=== PATIENT | female | born 1965 | race Caucasian/White ===

== ENCOUNTER → 2016-08-21 | Outpatient (CLI) | payer BC ==
[~2016-08-21] MED LIST: HYDR-5688 PO; MULT-506 PO
--- NOTE | 2016-08-21 10:19 | DIAGNOSTIC IMAGING REPORT ---
CT SCAN OF THE PARANASAL SINUSES CLINICAL HISTORY: Chronic sinusitis. COMPARISON STUDY: No priors. TECHNIQUE: High-resolution CT scan of the paranasal sinuses is performed. Images are reviewed in the axial, sagittal, and coronal planes. IV contrast was not administered for this examination. CT DOSE: 576.78 mGy.cm FINDINGS: Maxillary antra: Mild nodular mucosal thickening is seen bilaterally. Anterior ethmoid sinuses: Clear. Posterior ethmoid sinuses: Clear. Sphenoid sinuses: Clear. Frontal sinuses: Trace mucosal thickening is seen on the right. Clear on the left. Ostiomeatal complexes: Patent bilaterally. Frontoethmoidal and sphenoethmoidal recesses: Patent bilaterally. Carotid arteries: The carotid arteries are protuberant and thinly covered. No septal attachments are identified. Ethmoid roofs: The ethmoid roofs are symmetric. Nasal turbinates: Normal in appearance. Nasal septum: There is leftward deviation of the bony nasal septum. Optic nerves: Covered. Orbits: The bony orbits are intact. Orbital contents are normal in appearance. Calvarium: The imaged calvarium is normal in appearance Mastoid air cells: Well pneumatized. Brain parenchyma: Partially visualized brain parenchyma is within normal limits. IMPRESSION: Mild maxillary sinus disease as above. Electronically signed by: Luis Atkinson M.D. 08/21/2016 10:17 AM Dictated Date/Time: 08/21/2016 10:11 AM
--- NOTE | 2016-12-17 09:26 | History and Physical: Surg Cnt ---
History & Physical Date Dec 17, 2016. Chief Complaint chronic sinusitis History of Present Illness The patient is a 51 year old female with complaints of Additional History Hepatic Disease: No Endocrine Disorder: No Kidney Disease: No Hypertension: No Heart Disease: No Bleeding Tendencies: No Infectious Diseases: No Physical Examination Skin: warm/dry, no rash Eyes: normal inspection, EOMI, sclerae normal ENT: normal ENT inspection, pharynx normal Head: normocephalic, atraumatic Neck: supple, no adenopathy, trachea midline Respiratory/Chest: lungs clear, normal breath sounds, no respiratory distress Cardiovascular: regular rate, rhythm, no edema, no murmur Abdomen / GI: normal bowel sounds, non tender Back: normal inspection Extremities: normal inspection, normal range of motion Neurologic/Psych: no motor/sensory deficits, alert, normal reflexes, oriented x 3 Diagnosis chronic sinusitis Plan of Treatment endoscopic sinus surgery, explained with explanation of risks
== END | disposition home or self-care (01) ==
LOC: C.CTS 10:03
PROVIDERS: ATTEND Otolaryngology
DX: J32.9 Chronic sinusitis, unspecified (principal)

== ENCOUNTER → 2016-12-17 | Outpatient (CLI) | payer BC | END | disposition home or self-care (01) | LOC: C.CPL 10:52 | PROVIDERS: ATTEND Otolaryngology | DX: Z01.812 Encounter for preprocedural laboratory examination (principal) ==

== ENCOUNTER → 2016-12-19 | Day surgery (SDC) | payer BC ==
[2016-12-18 14:48] VITALS: Ht 167.6 cm; Wt 86.4 kg
[~2016-12-19] VITALS: Ht 167.6 cm; Wt 86.4 kg
[~2016-12-19] MED LIST changes: +ATROPINE SULFATE 0.1 MG/ML 5ML SYR IV PRN; +BACITRACIN OINT 15 GM TUBE ONE; +CEFAZOLIN 2000 MG/60 ML D5W IV SCH; +DEXAMETHASONE SOD INJ 4 MG/ML VIAL ONE; +DiphenhydrAMINE HCL 50 MG/ML VIAL ONE; +EpHEDrine SULFATE INJ 50 MG/ML AMP IV PRN; +EpINEphrine INJ 1MG/ML AMP 1 MG/ML AMP ONE; +FENTANYL CITRATE INJ 50 MCG/1 ML 2 ML VIAL IV PRN; +FENTANYL CITRATE INJ 50 MCG/1 ML 2 ML VIAL ONE; +FLUMAZENIL 0.1 MG/1 ML 10 ML VIAL IV PRN; +GELATIN SPONGE 12-7MM ONE; +GLYCOPYRROLATE INJ 0.2 MG/ML VIAL ONE; +HYDROCODONE/ACETAMOPHEN 5/325MG TAB PO PRN; +LABETALOL HCL IV 5 MG/ML 20ML IV PRN; +LIDO 2%/EPINEPHRINE 1:100000 20 ML VIAL INFIL ONE; +LIDOCAINE 4% MPF SOAK 5 ML = 1 DOSE TOP ONE; +LIDOCAINE HCL 2% 2 ML VIAL (20MG/ML) ONE; +METOCLOPRAMIDE HCL INJ 5 MG/ML 2 ML VIAL ONE; +MIDAZOLAM HCL 1 MG/ML 2ML VIAL ONE; +NALOXONE HCL 0.4 MG/1 ML VIAL/CARP IV PRN; +NEOSTIGMINE METHYLSULFATE 5 MG/5 ML SYR ONE; +ONDANSETRON INJ 2 MG/ML 2 ML VIAL IV PRN; +ONDANSETRON INJ 2 MG/ML 2 ML VIAL ONE; +OXYMETAZOLINE HCL 0.05% NA SPR 15 ML BTL SCH; +PATIENT'S ALLERGY INFO NEEDS ENTERED SCH; +PROMETHAZINE HCL INJ 12.5 MG in SODIUM CHLORIDE 0.9% 50ML 50 ML IV PRN; +PROPOFOL IV EMULSION 10 MG/ML 20 ML VIAL IV ONE; +SODIUM CHLORIDE 0.9% 1000ML 1,000 ML IV SCH
[2016-12-19] MEDS: LACTATED RINGER'S 1000ML 1,000 ML IV SCH ×2 (10:57→14:07)
--- NOTE | 2016-12-19 13:47 | History & Physical Bridge Note ---
H&P Re-Evaluation Bridge Note: I have examined the patient, reviewed the History & Physical and in the interval since the performance of the History & Physical I have noted the following changes of clinical significance: No changes noted
--- NOTE | 2016-12-19 15:25 | [facility] Operative Report ---
Operative Report Operative Date Dec 19, 2016. Pre-Operative Diagnosis Chronic Sinusitis Post-Operative Diagnosis Same Procedure(s) Performed Endoscopic Sinus Surgery Surgeon Dr. Claros Weaver Apprentice Surgeon(s) None Estimated Blood Loss 50 mL Findings Mucosal thickening and cysts Specimens None Drains none Anesthesia Gen. endotracheal Complication(s) None Disposition Recovery Room / PACU Implants Contour stents Indications 51-year-old lady with significant history of recurrent acute sinusitis for many years with persistent frontal and ethmoid headaches Description of Procedure Procedure; the patient was brought to the operating room and placed in the supine position. General endotracheal anesthesia was induced. She was prepped and draped in the usual sterile manner. The brain lab device was calibrated and used for the entire procedure. The nose was decongested using cottonoids with the topical solution of 4 mL of 4% Xylocaine mixed with 1 mL of epinephrine. The right maxillary sinus was cannulated with the guidewire and dilated using the 6 mm balloon. The left maxillary sinus was also dilated. The left nasal frontal duct was cannulated with a guidewire with [employer] computer guidance and dilated using the 6 mm balloon. The guidewire was left in place as the marker at the catheter was withdrawn. The shaver was coupled with the brain lab device and used open up the nasal frontal duct by following the guidewire superiorly opening up the Aggrenox ECL removing the anterior wall and the posterior wall of the Agger Nasi-cell. The mucosa inside the nasal frontal duct was kept intact. At this point total ethmoidectomy was performed. The shaver was coupled with the brain lab device the bullae ethmoidalis was opened, ground lamella was penetrated, the posterior most ethmoid air cell was identified, the lamina papyracea and the skull base were identified with the brain lab device these structures were followed anteriorly exonerating all the posterior and then all the anterior ethmoid air cells up to the previously dilated nasal frontal duct. The maxillary sinus was opened by removing the polypoid mucosa at the posterior border which is the anterior wall of the bullae ethmoidalis. The right frontal sinusotomy total ethmoidectomy and maxillary sinus antrostomy was performed in a similar manner. Contour stents were then placed in the nasal frontal duct. The patient tolerated procedure well and was taken to the recovery area in satisfactory condition. I attest to the content of the Intraoperative Record and any orders documented therein. Any exceptions are noted below.
--- NOTE | 2016-12-19 15:27 | Discharge Instructions-SurgCtr ---
Discharge Instructions Date of Service Dec 19, 2016. Visit Reason for Visit: Chronic Sinusitis Discharge Discharge Diagnosis / Problem: APRIL Discharge Goals Goal(s): Decrease discomfort, Improve function, Improve disease control Activity Recommendations Activity Limitations: resume your previous activity Anesthesia . Post Anesthesia Instructions: If you have had General Anesthesia or IV Sedation: * Do not drive today. * Resume driving when surgeon permits. * Do not make important decisions or sign legal documents today. * Call surgeon for: 1. Temperature elevations greater than 101 degrees F. 2. Uncontrollable pain. 3. Excessive bleeding. 4. Persistent nausea and vomiting. 5. Medication intolerance (nausea, vomiting or rash). * For nausea and vomiting use only clear liquids such as: tea, soda, bouillon until nausea subsides, then gradually increase diet as tolerated. * If you have any concerns or questions, call your surgeon's office. If physician is unavailable and it is an emergency, call 911 or go to the nearest emergency room. . Instructions / Follow-Up Instructions / Follow-Up ACTIVITY RECOMMENDATIONS: * Being up and around is good, but no strenuous activity, heavy lifting or physical exertion for one week. * Keep your head elevated 30 degrees when lying down or sleeping. * Do not blow your nose for 48 hours, sniff back instead. * Avoid hot showers. OVER THE COUNTER MEDICATIONS: * You may use Tylenol * Avoid aspirin or aspirin containing products, e.g. as they may increase bleeding. SPECIAL CARE INSTRUCTIONS: * Expect to have bloody drainage from your nose and/or down your throat for one to three days. Change drip pad as needed. * Begin irrigating your nose with saline solution today, at least six to ten times per day and sniff back to help remove old clots or crust. * You may experience nasal and facial congestion, pain and pressure, this is normal. * Please call with any significant and/or progressive pain, redness, swelling around the eyes, visual changes, fever of 101.5 degrees F, active bleeding or any problems or concerns. * If active bleeding occurs, spray the nose three times at one minute intervals with Afrin spray and call or cell phone: . If unable to reach the doctor, go to the nearest Emergency Department. Special Diet: * Avoid extremely hot fluids. FOLLOW UP VISIT: Follow-up Visit with Dr. Claros If not already scheduled, please call to schedule. Diet Recommendations Home Diet: no limitations Procedures Procedures Performed: Endoscopic Sinus Surgery Pending Studies Studies pending at discharge: no Medical Emergencies . Who to Call and When: Medical Emergencies: If at any time you feel your situation is an emergency, please call 911 immediately. . Non-Emergent Contact Non-Emergency issues call your: Primary Care Provider . . "Provider Documentation" section prepared by Delilah Claros. . [place] Drug Monitoring Program Search Results: no issues identified
[2016-12-19 16:13] VITALS: TEMP 36.4
[2016-12-19 16:30] VITALS: BP 124/79; PULSE 65; O2SAT 95
--- NOTE | 2016-12-19 16:46 | Anesthesia Progress Nt - [facility] ---
Anesthesia Post Op Note Date & Time Dec 19, 2016 at 16:46 Vital Signs Pain Intensity: 0 Vital Signs Past 12 Hours Date Time Temp Pulse Resp B/P (MAP) Pulse Ox O2 Delivery O2 Flow Rate FiO2 12/19/16 16:30 65 16 124/79 (94) 95 Room Air 12/19/16 16:13 36.4 53 16 117/76 (90) 96 Room Air 12/19/16 16:01 115/68 12/19/16 16:00 37.0 12/19/16 15:58 58 14 12/19/16 15:58 58 14 94 12/19/16 15:56 115/73 12/19/16 15:53 58 14 94 12/19/16 15:53 58 14 12/19/16 15:51 108/68 12/19/16 15:48 56 16 94 12/19/16 15:48 57 16 12/19/16 15:46 117/66 12/19/16 15:43 62 17 98 12/19/16 15:43 63 17 12/19/16 15:41 116/68 12/19/16 15:38 54 16 99 12/19/16 15:38 54 16 12/19/16 15:36 114/67 12/19/16 15:33 55 16 12/19/16 15:33 55 16 99 12/19/16 15:31 111/71 12/19/16 15:28 56 14 100 12/19/16 15:28 56 14 12/19/16 15:26 115/69 12/19/16 15:23 73 15 12/19/16 15:23 76 15 114/77 99 12/19/16 15:21 36.4 86 14 114/77 98 Humidified Oxygen 8 Diffusion Mask 12/19/16 10:37 36.4 52 18 126/85 (99) 99 Room Air Notes Mental Status: alert / awake / arousable, participated in evaluation Pt Amnestic to Procedure: Yes Nausea / Vomiting: adequately controlled Pain: adequately controlled Airway Patency, RR, SpO2: stable & adequate BP & HR: stable & adequate Hydration State: stable & adequate Anesthetic Complications: no major complications apparent
== END | disposition home or self-care (01) ==
LOC: X.SURG 10:08
PROVIDERS: ATTEND Otolaryngology
DX: J32.9 Chronic sinusitis, unspecified (principal); E66.9 Obesity, unspecified; Z88.2 Allergy status to sulfonamides